=== PATIENT | female | born 1995 | race Two or more races ===

== ENCOUNTER 2017-04-30 07:05 | Emergency (ER) | payer OTHER ==
[~2017-04-30] VITALS: Ht 152.4 cm; Wt 72.6 kg
[~2017-04-30 07:05] MED LIST: HYDR-971 PO; NAPR500T3 PO; OFLO5DRO OS; PNV1TABL25 PO
[2017-04-30 08:32] LABS: BASO % 0 % (0-3); EOS % 0 % (0-3); HEMATOCRIT 41.2 % (36.0-47.0); HEMOGLOBIN 14.1 g/dL (12.0-15.5); LYMPH # 1.5 x10^3/uL (1.0-4.8); LYMPH % 13 % (24-48); MEAN CORPUSCULAR HEMOGLOBIN 29 pg (25-35); MEAN CORPUSCULAR HGB CONC 34 g/dL (31-37); MEAN CORPUSCULAR VOLUME 86 fL (79-100); MONO % 4 % (0-9); NEUT % 82 % (31-73); PLATELET COUNT 328 x10^3/uL (140-400); RED BLOOD COUNT 4.81 x10^6/uL (3.50-5.40); RED CELL DISTRIBUTION WIDTH 13.9 % (11.5-14.5); WHITE BLOOD COUNT 11.1 x10^3/uL (4.0-11.0)
--- NOTE | 2017-04-30 09:47 | RAD ---
Obstetric ultrasound 04/30/2017 at 0900 hours Indication: Vaginal bleeding Comparison: None available Technique: Sonographic imaging of the pelvis was performed utilizing transabdominal and transvaginal imaging. Findings: The uterus measures 10 cm x 4 cm x 4 cm. A gestational sac is identified without yolk sac or pole. Gestational sac measures approximately 1.4 cm compatible with a gestational age of 6 weeks and 2 days. Right ovary measures 4.1 x 2.3 x 2.2 cm. There is a 2.2 x 1.7 x 1.3 cm hemorrhagic cyst in the right ovary, suggestive of a corpus luteum. Left ovary measures 2.8 x 2.1 x 1.7 cm and is within normal limits. There is no pelvic free fluid. Visualized portions of the urinary bladder within normal limits. Impression: Gestational sac is identified within the uterine fundus without evidence for a yolk sac or pole. Findings are compatible with a gestational age of 6 weeks and 3 days which is discrepant with LMP. Findings could represent early versus missed or threatened failure. Correlation with serial hCG and pelvic ultrasound is recommended for further evaluation.
[2017-04-30 09:49] LABS: BILIRUBIN,URINE NEGATIVE (NEG); GLUCOSE,URINE NEGATIVE (NEG); NITRITE,URINE NEGATIVE (NEG); PH,URINE 6.5; PROTEIN,URINE NEGATIVE (NEG-TRACE); UROBILINOGEN,URINE 0.2 mg/dL (0.2 mg/dL)
[2017-04-30 10:14] LABS: BACTERIA,URINE FEW /HPF (0-FEW)
--- NOTE | 2017-04-30 10:14 | PHYS DOC ---
Past Medical History Past Medical History: No Pertinent History Past Surgical History: Alcohol Use: None Drug Use: None Adult General Chief Complaint Chief Complaint: ABDOMINAL PAIN IN HPI HPI Patient is a 21 G3, P2 year old female with estimated gestation of 5 weeks presents with vaginal spotting occasional cramping started this morning. Denies dizziness lightheadedness, abdominal or pelvic pain. No nausea vomiting. Vaginal bleeding is describing is spotting and dark brown. Patient denies recent intercourse. No urinary frequency or urgency. No history of kidney stones. [] Review of Systems Review of Systems Review symptoms as per history of present illness. All other review symptoms are negative. Allergies Allergies Allergies Coded Allergies Type Severity Reaction Last Updated Verified No Known Drug Allergies 01/03/14 No Physical Exam Physical Exam Constitutional: Well developed, well nourished, no acute distress, non-toxic appearance. [] HENT: Normocephalic, atraumatic, bilateral external ears normal, oropharynx moist, no oral exudates, nose normal. [] Eyes: PERRLA, EOMI, conjunctiva normal, no discharge. [] Neck: Normal range of motion, no tenderness, supple, no stridor. [] Cardiovascular:Heart rate regular rhythm, no murmur [] Lungs & Thorax: Bilateral breath sounds clear to auscultation [] Abdomen: Bowel sounds normal, soft. [] Neurologic: Alert and oriented X 3, normal motor function, normal sensory function, no focal deficits noted. [] Psychologic: Affect normal, judgement normal, mood normal. [] Current Patient Data Vital Signs Vital Signs Date Time Temp Pulse Resp B/P (MAP) Pulse Ox O2 Delivery O2 Flow Rate FiO2 04/30/17 07:15 98.5 99 18 120/74 (89) 98 Room Air 98.5 Lab Values Laboratory Tests Test 04/30/17 07:23 04/30/17 08:11 POC Urine HCG, Qualitative Hcg positive (Negative) White Blood Count 11.1 x10^3/uL (4.0-11.0) H Red Blood Count 4.81 x10^6/uL (3.50-5.40) Hemoglobin 14.1 g/dL (12.0-15.5) Hematocrit 41.2 % (36.0-47.0) Mean Corpuscular Volume 86 fL (79-100) Mean Corpuscular Hemoglobin 29 pg (25-35) Mean Corpuscular Hemoglobin Concent 34 g/dL (31-37) Red Cell Distribution Width 13.9 % (11.5-14.5) Platelet Count 328 x10^3/uL (140-400) Neutrophils (%) (Auto) 82 % (31-73) H Lymphocytes (%) (Auto) 13 % (24-48) L Monocytes (%) (Auto) 4 % (0-9) Eosinophils (%) (Auto) 0 % (0-3) Basophils (%) (Auto) 0 % (0-3) Neutrophils # (Auto) 9.1 x10^3uL (1.8-7.7) H Lymphocytes # (Auto) 1.5 x10^3/uL (1.0-4.8) Monocytes # (Auto) 0.5 x10^3/uL (0.0-1.1) Eosinophils # (Auto) 0.0 x10^3/uL (0.0-0.7) Basophils # (Auto) 0.0 x10^3/uL (0.0-0.2) Maternal Serum HCG Beta Subunit 29008 mIU/mL (0-5) H Laboratory Tests 04/30/17 08:11 EKG EKG [] Radiology/Procedures Radiology/Procedures [OB ultrasound less than 14 weeks: Impression: Gestational sac is identified within the uterine fundus without evidence for a yolk sac or pole. Findings are compatible with a gestational age of 6 weeks and 3 days which is discrepant with LMP. Findings could represent early versus missed or threatened failure. Correlation with serial hCG and pelvic ultrasound is recommended for further evaluation] Course & Med Decision Making Course & Med Decision Making Pertinent Labs and Imaging studies reviewed. (See chart for details) [Abdomen soft nontender. Patient is dramatic in the emergency department. Ultrasound reassuring. Recommend serial hCG Quant testing and OB follow-up. Return precautions reviewed. Patient verbalizes understanding agreement discharge instructions prior to departure.] Dragon Disclaimer Dragon Disclaimer This electronic medical record was generated, in whole or in part, using a voice recognition dictation system. Departure Departure Impression: Primary Impression: Vagina bleeding Additional Impressions: (induced) termination of with other complications Disposition: 01 HOME, SELF-CARE Referrals: CHELSEY RIVERO Jr, MD Patient Instructions: Threatened Miscarriage, [id number] Additional Instructions: Your were evaluated emergency department for vaginal bleeding in . An ultrasound was warm which shows a gestational sac at 5 weeks, 3 days. pole was not present. Symptoms are consistent with early regnancy, possible miscarriage or possible ectopic . Please follow-up with your FORMAL SERVICE WAITER in 2 days for repeat hCG level and ultrasound. Meantime, rest her pelvis, nothing in the vagina for one week. If you develop increased bleeding, lightheadedness, dizziness, shortness of breath or increased abdominal pain return to the emergency department. Problem Qualifiers LILIANA AVILEZ DO Apr 30, 2017 10:14
[2017-04-30 10:30] VITALS: BP 102/65
== END 2017-04-30 10:46 | disposition home or self-care (01) ==
LOC: ER 07:05
DX: O04.6 Delayed or excessive hemorrhage following (induced) termination of pregnancy (principal); Z3A.01 Less than 8 weeks gestation of pregnancy
CPT/HCPCS: 36415; 76801; 76817; 81001; 81025; 84702; 85025; 86900; 86901; 87086; 99285-25

== ENCOUNTER 2017-05-05 16:05 | Day surgery (SDC) | payer OTHER ==
[~2017-05-05 16:05] MED LIST changes: +HYDROmorphone 2 MG/ML VIAL IV PRN; +IV RINGERS,LACTATED 1000ML 1,000 ML IV SCH; +LIDOCAINE 1% PF 2 ML VIAL. ID PRN; +MORPHINE SULFATE 4 MG/ML DISP.SYRIN. IV PRN; +ONDANSETRON PF 4 MG/2 ML VIAL. IV PRN; +PROCHLORPERAZINE 10 MG/2 ML VIAL. IV PRN; +fentaNYL PF VIAL 100 MCG/2 ML VIAL IV PRN
[2017-05-05] MEDS ORDERED: MIDAZOLAM HCL/PF 2 MG/2 ML VIAL. ONE (17:44)
[2017-05-05] MEDS ORDERED: LIDOCAINE 2% PF Vial for OR 5 ML VIAL. ONE (17:44)
[2017-05-05] MEDS ORDERED: DEXAMETHASONE SOD PHOS 20 MG/5 ML VIAL. ONE (17:44)
[2017-05-05] MEDS ORDERED: ONDANSETRON PF 4 MG/2 ML VIAL. ONE (17:44)
[2017-05-05] MEDS ORDERED: PROPOFOL 20 ML IV ONE (17:44)
[2017-05-05] MEDS ORDERED: fentaNYL PF VIAL 100 MCG/2 ML VIAL ONE ×2 (17:45→18:34)
[2017-05-05] MEDS ORDERED: miSOPROStol 200MCG TAB 200 MCG TABLET ONE (17:47)
[2017-05-05] MEDS ORDERED: OXYTOCIN 10 UNIT/ML VIAL. ONE (18:26)
--- NOTE | 2017-05-05 18:46 | PDOC ---
BRIEF OPERATIVE NOTE Date: May 05, 2017 Pre-Op Diagnosis Incomplete AB Post-Op Diagnosis Same Procedure Performed Suction D and C Surgeon Sultana Brass Wind Instruments Tube Bender None Anesthesia Type: General Blood Loss 100cc Specimens Obtained POC Complications None FLO ORTIZ MD May 05, 2017 18:46
[2017-05-05] MEDS ORDERED: HYDR-971 PO (19:09)
[2017-05-05] MEDS ORDERED: IBUP200T43 PO (19:10)
[2017-05-05] MEDS ORDERED: METH0.2T36 PO (19:11)
--- NOTE | 2017-05-05 19:11 | OP ---
DATE OF SURGERY: 05/05/2017 PREOPERATIVE DIAGNOSIS: Incomplete . POSTOPERATIVE DIAGNOSIS: Incomplete . PROCEDURE: Suction D and C. SURGEON: Gt Weinberg MD. RAILROAD EMERGENCY SERVICES MANAGER: None. ANESTHESIA: General. ESTIMATED BLOOD LOSS: 100 mL. FLUIDS: Crystalloid. SPECIMENS: Products of conception. COMPLICATIONS: None. CONDITION: Stable. DESCRIPTION OF PROCEDURE: After risks, benefits, indications, alternatives discussed in detail with the patient, the patient was brought to the OR theater, placed in a dorsal lithotomy position in Renaldo stirru. After adequate general anesthesia, patient was prepped and draped in usual sterile manner. Exam under anesthesia was performed. Uterus was anteflexed, boggy, and approximately 9 to 10 weeks' in size. Posterior weighted speculum was placed in the vaginal vault. Cervix was grasped with single tooth tenaculum. Cervix was dilated up with Hegar dilator to receive #9 curved suction cannula. Gentle suction curettage was performed in all quadrants of the uterus. Products of conception were seen going through the clear tubing. Sharp curettage was performed in all quadrants of the uterus until the usual cry was heard. The suction cannula was once again placed. No further products of conception were seen going through the tubing. The tubing was rinsed with normal saline. Vaginal vault was wiped clean with lap and sponges. Posterior weighted speculum was removed. Puncture sites from single tooth tenaculum were hemostatic and procedure was terminated. The patient went to postop anesthesia recovery in stable condition. GT WEINBERG MD DR: ELPIDIO/lizandro JOB#: [id number] / [id number]
[2017-05-05] MEDS ORDERED: DOXY100T PO (19:12)
[2017-05-05] MEDS ORDERED: HYDROcodone/APAP 5/325MG 1 TAB TABLET PO ONE (19:30)
[2017-05-05 19:39] VITALS: BP 117/79
--- NOTE | 2017-05-09 11:01 | PATHOLOGY ---
PATHOLOGY REPORT * * * * * * * * FINAL DIAGNOSIS: Uterine contents "products of conception": - Decidual tissue inflamed and hemorrhagic admixed with chorionic villi consistent with products of conception. (SHA:pit; 05/09/2017) REPORT ELECTRONICALLY SIGNED BY: Calvin Hernandez M.D. DATE/TIME: 05/09/2017 11:00 * * * * * * * * GROSS PATHOLOGY: The specimen is received in formalin, designated "Alina Mary, products of conception" and consists of 27g of dark reddish brown spongy soft tissue and admixed blood clot having an aggregate measurement of 6.5 x 5.2 x 1.2 cm. The specimen is closely inspected and no or embryonic tissue is identified grossly. Multiple development representative sections are submitted in cassettes A1 through A3. (JPM; 05/06/17) INITIAL CPT CODE(S): A; 21339 Professional services performed by [facility] [place] [address] Technical services performed by [facility] at [address] [place] [address], [facility] [address], [place] [address]. SPECIMEN(S) RECEIVED: A.Products of conception CLINICAL HISTORY: Missed PATIENT: ALINA MARY /AGE: 209/29/1995 (Age: 21) PATIENT #: [id number] ALT CASE #: SPECIMEN COLLECTION DATE: 05/05/2017 SPECIMEN RECEIVED DATE: 05/06/2017 [facility] - [address] [place] [address] - PHONE: [phone] * * * END OF REPORT * * *
== END 2017-05-05 19:40 | disposition home or self-care (01) ==
LOC: SURG 16:05
PROVIDERS: ATTEND Specialist
DX: O03.4 Incomplete spontaneous abortion without complication (principal); K21.9 Gastro-esophageal reflux disease without esophagitis; E66.9 Obesity, unspecified; Z68.20 Body mass index [BMI] 20.0-20.9, adult
CPT/HCPCS: 59812; J1100; J2250; J2405; J2590; J2704; J3010; J2001

== ENCOUNTER → 2017-08-02 | Outpatient (CLI) | payer OTHER ==
[~2017-08-02] MED LIST changes: +DOXY100T PO; -HYDROmorphone 2 MG/ML VIAL IV PRN; +IBUP200T44 PO; -IV RINGERS,LACTATED 1000ML 1,000 ML IV SCH; -LIDOCAINE 1% PF 2 ML VIAL. ID PRN; +METH0.2T36 PO; -MORPHINE SULFATE 4 MG/ML DISP.SYRIN. IV PRN; -NAPR500T3 PO; +NAPR500T4 PO; -ONDANSETRON PF 4 MG/2 ML VIAL. IV PRN; +OXYC-323 PO; -PROCHLORPERAZINE 10 MG/2 ML VIAL. IV PRN; -fentaNYL PF VIAL 100 MCG/2 ML VIAL IV PRN
--- NOTE | 2017-08-02 11:49 | RAD ---
Indication: Right upper quadrant pain. The pancreas is unremarkable. IVC is unremarkable. The liver is normal in size. The gallbladder contains multiple gallstones. No wall thickening is identified. No pericholecystic fluid is seen. There is no biliary ductal dilatation. The patient did have a positive sonographic Mitchell's sign. The right kidney is unremarkable. There is no ascites. Impression: Cholelithiasis and positive sonographic Mitchell sign. No gallbladder wall thickening or ductal dilatation is seen.
== END | disposition home or self-care (01) ==
LOC: US 11:20
PROVIDERS: ATTEND Specialist
DX: K80.20 Calculus of gallbladder without cholecystitis without obstruction (principal)
CPT/HCPCS: 76705

== ENCOUNTER 2017-08-04 11:16 | Day surgery (SDC) | payer OTHER ==
[~2017-08-04] VITALS: Ht 157.5 cm; Wt 68.5 kg
[~2017-08-04 11:16] MED LIST changes: +BUPIVAC MPF-EPI 0.5%-1:200000 30 ML VIAL. ONE; +DEXAMETHASONE SOD PHOS 20 MG/5 ML VIAL. ONE; +IOHEXOL 300 MG/ML 100ML VIAL. ONE; +LIDOCAINE 2% PF Vial for OR 5 ML VIAL. ONE; +MIDAZOLAM HCL/PF 2 MG/2 ML VIAL. ONE; +ONDANSETRON PF 4 MG/2 ML VIAL. ONE; -OXYC-323 PO; +PROPOFOL 20 ML IV ONE; +ROCURONIUM 50 MG/5 ML VIAL. ONE; +SURGICEL HEMOSTAT 4X8 EACH. ONE; +ceFAZolin 2GM PREMIX 2 GM/50 ML BAG IV ONE; +fentaNYL PF VIAL 100 MCG/2 ML VIAL ONE
[2017-08-04] MEDS ORDERED: IV RINGERS,LACTATED 1000ML 1,000 ML IV SCH ×2 (11:29→14:49)
[2017-08-04] MEDS ORDERED: fentaNYL PF VIAL 100 MCG/2 ML VIAL IV PRN ×4 (11:30→15:00)
[2017-08-04] MEDS ORDERED: MIDAZOLAM HCL/PF 2 MG/2 ML VIAL. IV PRN (11:30)
[2017-08-04] MEDS ORDERED: LIDOCAINE 1% PF 2 ML VIAL. ID PRN ×2 (11:30→15:00)
[2017-08-04 11:44] LABS: NEG OBC UR NEG; POS OBC UR POS
[2017-08-04] MEDS ORDERED: fentaNYL PF VIAL 100 MCG/2 ML VIAL ONE (13:58)
[2017-08-04] MEDS ORDERED: NEOSTIGMINE METHYLSULFATE 5 MG/5 ML SYRINGE. ONE (14:14)
[2017-08-04] MEDS ORDERED: GLYCOPYRROLATE 1 MG/5 ML VIAL. ONE (14:14)
[2017-08-04] MEDS ORDERED: DESFLURANE 61 TO 120 MINUTES IH ONE (14:18)
--- NOTE | 2017-08-04 14:34 | PDOC4 ---
Operative Note Operative Note Date: 08/04/2017 Preoperative diagnosis: Cholecystitis with cholelithiasis Postoperative diagnosis: Same Procedure: Laparoscopic cholecystectomy Specimen: Gallbladder Surgeon: Anthony Dictation: Patient is a 21-year-old female is had three-week history of right upper quadrant abdominal pain with postprandial nausea ultrasound showing gallstones and dilated thickened gallbladder wall. The procedure of lap scopic cholecystectomy was explained to the patient detail was benefits were also discussed including bleeding infection injury to intra-abdominal contents possibly necessitating further or open operations alternatives to this procedure also discussed with patient seemed understanding gave both verbal and written consent have procedure performed. Patient was taken to the operating room placed in supine position general anesthesia was initiated once patient was asleep and intubated her abdomen was prepped and draped usual sterile fashion using ChloraPrep and area just below the umbilicus injected quarter percent Marcaine with epinephrine incision was made with 11 blade scalpel varies needle was placed within the abdomen creating pneumoperitoneum once this complete a 11 mm port was placed and a 5 mm camera was placed within the abdomen which was inspected no other at maladies were noted was noted the gallbladder was quite edematous quite a few adhesions to the gallbladder. A 5 mm port was placed in the epigastrium under direct visualization a 5 OmegaPort was placed in the lateral right upper quadrant and one in the medial right upper quadrant all under direct visualization area the dome of the gallbladder' s grasped retracted cephalad the infundibulum the gallbladder's grasped retracted laterally the adherent tissues gallbladder were taken down with blunt dissection down to the triangle was noted that the infundibulum was quite dilated secondary to stones within the infundibulum stone was then worked back into the gallbladder which allowed for the triangle adherent tissues to be taken down exposing the cystic duct which again was quite dilated to take for 5 mm clip. At this point a 10 mm port was exchanged out for the 5mm epigastric port and using 10 hemo-lock clip was used to clip the cystic duct twice. The cystic duct was then transected gallbladder was taken off the liver with hook left cautery using Endo Catch bag and removed the gallbladder from the umbilicus. Right upper quadrant was irrigated and suctioned dry hemostasis didn' t be appropriate and the pneumoperitoneum was reduced all ports removed fascial defect of the umbilicus closed [id number] 0 Vicryl suture and skin was approximate all port sites 4-0 Monocryl Mastisol Steri-Strips and Band-Aids were applied as dressings. The patient was waken expanded in the operating room taken recovery in stable condition all sponge instrument needle counts listed as correct estimated blood loss 30 mL MAXINE ORANTES MD Aug 04, 2017 14:34
--- NOTE | 2017-08-04 14:35 | DISCH ---
DISCHARGE INSTRUCTIONS Condition on Discharge Condition on Discharge: Stable Activity After Discharge Activity Instructions for Disc: Avoid exertion Other activity instructions: No lifting >20lbs for 2 weeks Diet after Discharge Diet after Discharge: Low Fat Wound Incision Care Other wound/incision instructi: May shower in 24 hours Contacting the after DC Call your doctor for: If your condition worsens Follow-Up Follow up with: Dr Orantes in 2 weeks MAXINE ORANTES MD Aug 04, 2017 14:35
[2017-08-04] MEDS ORDERED: ONDANSETRON PF 4 MG/2 ML VIAL. IV PRN (15:00)
[2017-08-04] MEDS ORDERED: HYDROmorphone 2 MG/ML VIAL IV PRN (15:00)
[2017-08-04] MEDS ORDERED: PROCHLORPERAZINE 10 MG/2 ML VIAL. IV PRN (15:00)
[2017-08-04] MEDS ORDERED: MORPHINE SULFATE 2 MG/ML DISP.SYRIN. IV PRN (15:00)
[2017-08-04] MEDS ORDERED: oxyCODONE/APAP 5/325 1 TAB TABLET PO PRN (15:15)
[2017-08-04] MEDS ORDERED: OXYC-323 PO (15:19)
[2017-08-04 15:35] VITALS: BP 102/57
--- NOTE | 2017-08-06 13:14 | PATHOLOGY ---
PATHOLOGY REPORT * * * * * * * * FINAL DIAGNOSIS: Gallbladder, laparoscopic cholecystectomy: - Cholelithiasis. - Chronic and focal mild acute cholecystitis with focally increased eosinophils. COMMENT: There is no evidence of malignancy. (JPM:dagoberto; 08/05/2017) REPORT ELECTRONICALLY SIGNED BY: Won Valenzuela M.D. DATE/TIME: 08/06/2017 13:00 * * * * * * * * GROSS PATHOLOGY: Received in formalin labeled "Alina Mary, gallbladder and contents," is a 9.5 x 2.8 x 1.5 cm, intact gallbladder with purple-albarran, smooth, and dusky serosal surfaces. Opening the gallbladder reveals a pink-albarran and finely trabecular mucosa and an average wall thickness of 0.2 cm. Multiple yellow-green and multifaceted calculi are present measuring up to 1.0 cm in greatest dimension and no masses are noted grossly. [employer] sections from the body and fundus are submitted along with the proximal margin in cassette A1. (SDY; 08/04/2017) INITIAL CPT CODE(S): A; 65793 Professional services performed [place] [facility] [address] Technical services performed by [facility] at [address] [place] [address], [facility] [address] [address]. SPECIMEN(S) RECEIVED: A.Gallbladder and contents CLINICAL HISTORY: Cholecystitis PATIENT: ALINA MARY /AGE: 209/29/1995 (Age: 21) PATIENT #: [id number] ALT CASE #: SPECIMEN COLLECTION DATE: 08/04/2017 SPECIMEN RECEIVED DATE: 08/04/2017 [facility] - [address] [place] [address] - PHONE: [phone] * * * END OF REPORT * * *
== END 2017-08-04 16:15 | disposition home or self-care (01) ==
LOC: SURG 11:16
PROVIDERS: ATTEND Surgery
DX: K80.10 Calculus of gallbladder with chronic cholecystitis without obstruction (principal); E66.9 Obesity, unspecified; Z68.27 Body mass index [BMI] 27.0-27.9, adult; K21.9 Gastro-esophageal reflux disease without esophagitis; Z98.890 Other specified postprocedural states
CPT/HCPCS: 47562; 81025; J0690; J0780; J1100; J2250; J2405; J2704; J2710; J3010; J3490; J7030; J7120; Q9967; J2001

== ENCOUNTER 2018-10-06 04:43 | Inpatient (IN) | payer OTHER ==
[~2018-10-06] VITALS: Ht 157.5 cm; Wt 76.2 kg
[~2018-10-06 04:43] MED LIST changes: -BUPIVAC MPF-EPI 0.5%-1:200000 30 ML VIAL. ONE; -DEXAMETHASONE SOD PHOS 20 MG/5 ML VIAL. ONE; +HYDR-3164 PO; -HYDR-971 PO; -IOHEXOL 300 MG/ML 100ML VIAL. ONE; -LIDOCAINE 2% PF Vial for OR 5 ML VIAL. ONE; -MIDAZOLAM HCL/PF 2 MG/2 ML VIAL. ONE; +NAPR-514 PO; -NAPR500T4 PO; -ONDANSETRON PF 4 MG/2 ML VIAL. ONE; +OXYC1TAB15 PO; -PROPOFOL 20 ML IV ONE; -ROCURONIUM 50 MG/5 ML VIAL. ONE; -SURGICEL HEMOSTAT 4X8 EACH. ONE; -ceFAZolin 2GM PREMIX 2 GM/50 ML BAG IV ONE; -fentaNYL PF VIAL 100 MCG/2 ML VIAL ONE
[2018-10-06 05:15] LABS: BILIRUBIN,URINE NEGATIVE (NEG); CLARITY,URINE CLEAR; COLOR,URINE YELLOW; NITRITE,URINE NEGATIVE (NEG); PH,URINE 6.5; PROTEIN,URINE NEGATIVE (NEG-TRACE)
[2018-10-06] MEDS ORDERED: IV RINGERS,LACTATED 1000ML 1,000 ML IV SCH ×2 (05:15→06:15)
[2018-10-06 05:19] LABS: BACTERIA,URINE MANY /HPF (0-FEW); RBC,URINE OCC /HPF (0-2); SQUAMOUS EPITHELIAL CELL,UR MOD /LPF; WBC,URINE 20-40 /HPF (0-4)
[2018-10-06] MEDS ORDERED: 0.9 % SODIUM CHLORIDE 10 ML DISP.SYRIN. IV PRN ×2 (06:15→09:45)
[2018-10-06] MEDS ORDERED: ONDANSETRON PF 4 MG/2 ML VIAL. IV PRN (06:15)
[2018-10-06] MEDS ORDERED: IBUPROFEN 400 MG TABLET. PO PRN ×2 (06:15→09:45)
[2018-10-06] MEDS ORDERED: BUTORPHANOL 2 MG/ML VIAL. IV PRN (06:15)
[2018-10-06] MEDS ORDERED: fentaNYL PF VIAL 100 MCG/2 ML VIAL IV PRN (06:15)
[2018-10-06] MEDS ORDERED: TERBUTALINE 1 MG/ML VIAL. SQ PRN (06:15)
[2018-10-06] MEDS ORDERED: MAG HYDROX/ALUMINUM HYD/SIMETH 30 ML ORAL.SUSP PO PRN ×2 (06:15→09:45)
[2018-10-06] MEDS ORDERED: LIDOCAINE 1% PF 30 ML VIAL. INJ PRN (06:15)
[2018-10-06] MEDS ORDERED: OXYTOCIN 30 UNIT/500 ML PREMIX 500 ML IV PRN ×2 (06:15→09:45)
[2018-10-06] MEDS ORDERED: ACETAMINOPHEN 325 MG TABLET. PO PRN ×2 (06:15→09:45)
[2018-10-06] MEDS ORDERED: NALBUPHINE 10 MG/ML AMPUL. IV PRN (06:15)
[2018-10-06 06:17] VITALS: BP 131/84
[2018-10-06 07:31] LABS: BASO % 1 % (0-3); EOS % 0 % (0-3); HEMATOCRIT 34.3 % (36.0-47.0); HEMOGLOBIN 11.7 g/dL (12.0-15.5); LYMPH # 1.9 x10^3/uL (1.0-4.8); LYMPH % 26 % (24-48); MEAN CORPUSCULAR HEMOGLOBIN 28 pg (25-35); MEAN CORPUSCULAR HGB CONC 34 g/dL (31-37); MEAN CORPUSCULAR VOLUME 82 fL (79-100); MONO # 0.5 x10^3/uL (0.0-1.1); MONO % 6 % (0-9); NEUT # 4.9 x10^3uL (1.8-7.7); NEUT % 67 % (31-73); PLATELET COUNT 226 x10^3/uL (140-400); RED CELL DISTRIBUTION WIDTH 14.6 % (11.5-14.5); WHITE BLOOD COUNT 7.3 x10^3/uL (4.0-11.0)
--- NOTE | 2018-10-06 09:00 | PDOC1 ---
OB - History Hx of Present Care: Good Care Ultrasounds: Normal mid trimester US Obstetrical Complications: None Medical Complications: None Past Family/Social History * Past Medical, Surgical, Family and Obstetric Histories reviewed from chart. Blood Type: A+ Rubella: Immune RPR/VDRL: Negative GBS Status: Negative HBsAG: Negative OB - Chief Complaint & HPI Date of Admission: Date of Admission: Oct 06, 2018 at 04:43 Chief Complaint/History : 3 Para: 2 EDC: Oct 15, 2018 Reason for admission: active labor Admission Nurse Assessment Rev: Yes OB - Admission Exam Physical Exam Vitals: VS - Last 72 Hours, by Label Date Time Temp Pulse Resp B/P (MAP) Pulse Ox O2 Delivery O2 Flow Rate FiO2 10/06/18 06:17 98.6 86 18 131/84 (100) Room Air 98.6 HEENT: Normal, Nasal Mucosa Normal, Oropharynx Normal, Moist Membranes, Fontanelles Normal Heart: Regular Rate Lungs: Clear Abdomen: Gravid Extremities: Normal Pulses, No tenderness or swelling Reflexes: Normal Cervical Dilatation: 5cm Effacement: 75% Membranes: Intact Amniotic Fluid: Clear Heart Rate: Normal Accelerations: Accelerations Present Short Term Variability: Present Contractions on Admission: 6-10 Minutes Apart Intensity: Firm Assessment/Plan Assessment/Plan TIUP Labor FLO ORTIZ MD Oct 06, 2018 09:00
[2018-10-06] MEDS ORDERED: BENZOCAINE 20% TOPICAL AEROSOL SPRAY 57GM CAN. TP PRN (09:45)
[2018-10-06] MEDS ORDERED: HYDROCORTISONE 1% TOPICAL OINTMENT 30GM TUBE. TP PRN (09:45)
[2018-10-06] MEDS ORDERED: ZOLPIDEM 5 MG TABLET. PO PRN (09:45)
[2018-10-06] MEDS ORDERED: PHENYLEPH/MINERAL OIL/PETROLAT RECTAL OINTMENT 28GM TUBE. RC PRN (09:45)
[2018-10-06] MEDS ORDERED: SIMETHICONE 80 MG TAB.CHEW PO PRN (09:45)
[2018-10-06] MEDS ORDERED: MAGNESIUM HYDROXIDE 2,400 MG/30 ML ORAL.SUSP. PO PRN (09:45)
[2018-10-06] MEDS ORDERED: diphenhydrAMINE HCL 25 MG CAPSULE PO PRN (09:45)
[2018-10-06 14:00] VITALS: BP 110/71
[2018-10-06 15:01] VITALS: BP 111/73
[2018-10-06] MEDS ORDERED: FERROUS SULFATE 325 MG TABLET. PO SCH (17:00)
[2018-10-06] MEDS: IBUPROFEN 400 MG TABLET. PO SCH (17:25)
[2018-10-06 18:20] VITALS: BP 113/77
[2018-10-06 23:01] VITALS: BP 106/72
[2018-10-07] MEDS: IBUPROFEN 400 MG TABLET. PO SCH ×3 (05:54→22:19)
[2018-10-07 05:59] VITALS: BP 114/77
[2018-10-07] MEDS ORDERED: DIPHTH,PERTUSS(ACELL),TET TOX 0.5 ML DISP.SYRIN. VAX IM ONE (09:00)
[2018-10-07] MEDS: DOCUSATE SODIUM 100 MG CAPSULE. PO PRN (09:45)
--- NOTE | 2018-10-07 11:22 | PDOC ---
Provider Note Provider Note Doing well VSS uterus NTTP FU in AM FLO ORTIZ MD Oct 07, 2018 11:22
[2018-10-07 12:05] VITALS: BP 112/78
[2018-10-07 18:30] VITALS: BP 111/81
[2018-10-07 23:09] VITALS: BP 109/76
[2018-10-08 06:15] VITALS: BP 116/77
--- NOTE | 2018-10-08 08:07 | PDOC3 ---
OB DISCHARGE SUMMARY DATE OF ADMISSION: 10/06/18 DATE OF DISCHARGE: 10/08/18 REASON FOR ADMISSION: Onset of labor INTRAPARTUM PROCEDURES: Spontanous Vag Deliv DISCHARGE DIAGNOSIS: Term Delivered DISCHARGE INFORMATION: Activity (ad levi), Diet (regular), Instructions (pelvic rest x 6 wks) HOSPITAL COURSE Term gestation delivered vaginally without complications. CHELSEY RIVERO Jr, MD Oct 08, 2018 08:07
--- NOTE | 2018-10-08 08:08 | DISCH ---
DISCHARGE INSTRUCTIONS Condition on Discharge Condition on Discharge: Stable Activity After Discharge Activity Instructions for Disc: Avoid exertion Lifting Instructions after Dis: No heavy lifting, No pulling or pushing, Do not lift >10 pounds Driving Instructions after Dis: Do not drive today Weight Bearing Status after Di: Partial weight bearing Diet after Discharge Diet after Discharge: Regular Swallowing Supervision: None needed Contacting the DRLucía after DC Call your doctor for: Concerns you may have Follow-Up Follow up with: Dr. Weinberg in 2 wks Treatment/Equipment after DC Adaptive Equipment Issued: None CHELSEY RIVERO Jr, MD Oct 08, 2018 08:08
[2018-10-08] MEDS ORDERED: NAPR-514 PO (08:10)
[2018-10-08] MEDS ORDERED: OXYC1TAB15 PO (08:10)
[2018-10-08] MEDS: DOCUSATE SODIUM 100 MG CAPSULE. PO PRN (08:13)
[2018-10-08] MEDS: IBUPROFEN 400 MG TABLET. PO SCH (08:14)
[2018-10-08 12:35] VITALS: BP 117/86
--- NOTE | 2018-10-08 13:35 | NUR ---
Discharge Note: Pt. denies questions about discharge care instructions. Pt. and significant other educated on strapping NB in car seat. Pt. ambulatory, escorted by RN to vehicle with NB, belongings, and family present. NB on secure car seat base in back seat of vehicle, rear facing. Pt. discharged home. Tho Lara RN
== END 2018-10-08 13:35 | disposition home or self-care (01) | DRG 807 ==
LOC: 3 SO LND 04:43 → OBSVTOIN 04:43 → 3 NORTH 13:00
PROVIDERS: ADMIT Specialist; ATTEND Specialist
PROC: 10E0XZZ Delivery of Products of Conception, External Approach (ICD-10-PCS; principal; 2018-10-06)
PROC: 10907ZC Drainage of Amniotic Fluid, Therapeutic from Products of Conception, Via Natural or Artificial Opening (ICD-10-PCS; 2018-10-06)
DX: O34.219 Maternal care for unspecified type scar from previous cesarean delivery (principal); Z37.0 Single live birth; Z3A.38 38 weeks gestation of pregnancy
CPT/HCPCS: 36415; 81001; 85014; 85025; 86592; 86850; 86900; 86901; 87086; 90471; 90715; 90756; J2590; J7120; Q2035

== ENCOUNTER 2018-10-18 17:28 | Emergency (ER) | payer OTHER ==
[~2018-10-18] VITALS: Ht 154.9 cm; Wt 68.5 kg
[2018-10-18 18:20] VITALS: BP 116/79
[2018-10-18] MEDS ORDERED: AMOX875T PO (18:41)
--- NOTE | 2018-10-18 18:41 | PHYS DOC ---
Past Medical History Past Medical History: No Pertinent History (ANDRÉS IYER APRN) Past Surgical History: (ANDRÉS IYER APRN) Alcohol Use: None Drug Use: None (ANDRÉS IYER APRN) Adult General Chief Complaint Chief Complaint: EARACHE/EAR PAIN HPI HPI Patient is a 23 year old female who presents to the ER with complaints of left ear pain x4 days. Pt states that her left ear has been bleeding for the last 2 days, she has been putting cotton balls with vaporub on them into her ear. She denies any injury. She states that prior to the bleeding her ear felt itchy. She currently complains of muffled hearing in the left ear. She also reports a dry cough and congestion. Pt states that she gave last week, she denies any abdominal pain, vaginal complaints, shortness of breath, or sore throat. Her pain is a 7/10 on the pain scale, she denies any alleviating factors. (ANDRÉS IYER APRN) Review of Systems Review of Systems Constitutional: Denies fever or chills [] Eyes: Denies redness, or eye pain [] HENT: Denies nasal congestion or sore throat; see HPI[] Respiratory: Denies wheezing or shortness of breath; reports dry cough Cardiovascular: No additional information not addressed in HPI [] GI: Denies abdominal pain, nausea, vomiting, or diarrhea [] Musculoskeletal: Denies body aches Integument: Denies rash or skin lesions [] Neurologic: Denies headache, focal weakness or sensory changes [] All other systems were reviewed and found to be within normal limits, except as documented in this note. (ANDRÉS IYER APRN) Allergies Allergies Allergies Coded Allergies Type Severity Reaction Last Updated Verified No Known Drug Allergies 08/03/17 No (JUDY OVERTON DO) Physical Exam Physical Exam Constitutional: Well developed, well nourished, no acute distress, non-toxic appearance. [] HENT: Normocephalic, atraumatic, bilateral external ears normal, R TM normal. L TM infected with abrasions noted in canal no visible perforation of TM, oropharynx moist, no oral exudates, nose normal. [] Eyes: PERRLA, conjunctiva normal, no discharge. [] Neck: Normal range of motion, no stridor. [] Cardiovascular:Heart rate regular rhythm, no murmur [] Lungs & Thorax: Bilateral breath sounds clear to auscultation [] Skin: Warm, dry, no erythema, no rash. [] Extremities: No cyanosis, no clubbing, ROM intact, no edema. [] Neurologic: Alert and oriented X 3, normal motor function, normal sensory function, no focal deficits noted. [] Psychologic: Affect normal, judgement normal, mood normal. [] (ANDRÉS IYER APRN) Current Patient Data Vital Signs Vital Signs Date Time Temp Pulse Resp B/P (MAP) Pulse Ox O2 Delivery O2 Flow Rate FiO2 10/18/18 18:20 98.5 93 16 116/79 (91) 98 Room Air 98.5 (JUDY OVERTON DO) EKG EKG [] (ANDRÉS IYER APRN) Radiology/Procedures Radiology/Procedures [] (ANDRÉS IYER APRN) Course & Med Decision Making Course & Med Decision Making Pertinent Labs and Imaging studies reviewed. (See chart for details) [] (ANDRÉS IYER APRN) Dragon Disclaimer Dragon Disclaimer This electronic medical record was generated, in whole or in part, using a voice recognition dictation system. (ANDRÉS IYER APRN) Departure Departure Impression: Primary Impression: Acute suppurative OM Disposition: 01 HOME, SELF-CARE Condition: STABLE Referrals: NO PCP (PCP) Patient Instructions: Otitis Media, Adult, [id number] Additional Instructions: Fill the prescription and use as directed. Tylenol or ibuprofen as needed for pain. Do not put anything inside of your ear. Follow up with your primary care doctor in 1-2 days for recheck, return to the ER if symptoms worsen. Scripts Amoxicillin (AMOXICILLIN) 875 Mg Tablet 1 TAB PO BID, #20 TAB 0 Refills Prov: ANDRÉS IYER APRN 10/18/18 Attending Signature Attending Signature I have reviewed the PA/TRANSIT MECHANIC's note and plan of care. I was available for consultation as needed during the patient's visit in the emergency department. I agree with the clinical impression, plan, and disposition. (JUDY OVERTON DO) Problem Qualifiers Primary Impression: Acute suppurative OM Laterality: left Recurrence: not specified as recurrent Spontaneous tympanic membrane rupture: without spontaneous rupture Qualified Codes: H66.002 - Acute suppurative otitis media without spontaneous rupture of ear drum , left ear ANDRÉS IYER APRN Oct 18, 2018 18:41 JUDY OVERTON DO Oct 19, 2018 04:04
== END 2018-10-18 19:01 | disposition home or self-care (01) ==
LOC: ER 17:28
DX: H66.002 Acute suppurative otitis media without spontaneous rupture of ear drum, left ear (principal)
CPT/HCPCS: 99283